=== PATIENT | male | born 1985 | race American Indian/Alaskan Native ===

== ENCOUNTER 2019-02-14 19:04 | Emergency (ER) | payer BC, OTHER ==
--- NOTE | 2019-02-14 19:14 | EDM.PDOC ---
ED HPI GENERAL MEDICAL PROBLEM - General Chief Complaint: Trauma Stated Complaint: KICKED IN CHEST BY A HORSE Time Seen by Provider: 02/14/19 19:14 Source of Information: Reports: Patient History Limitations: Reports: No Limitations - History of Present Illness INITIAL COMMENTS - FREE TEXT/NARRATIVE: 33-year-old male presents to the ED for evaluation of significant anterior blunt chest wall trauma. Patient states he was kicked in the chest via non cladded horse about 19:30 last night. He was trying to D warm the horse. He did not come backwards and he eventually did go down to the ground because it knocked the wind out of him. But he was not pinned up against any fence etc. Horse then stepped on them over his right upper shoulder. He denies any head or neck injury. Pain was quite bad last night a little bit better today. Still hurts badly destroyed take a deep breath and with movement of his arms. It hurts quite badly to cough. Denies feeling shortness of breath. Ate and drank normally today. No odynophagia. He's been taking Motrin for pain. Onset: Sudden Onset Date: 02/13/19 Onset Time: 19:30 Duration: Hour(s): Location: Reports: Chest (Trauma) Quality: Reports: Ache ( wind kicked by a horse last night.), Stabbing Severity: Moderate Improves with: Reports: Rest Worsens with: Reports: Other, Movement (Deep breathing, cough.) Context: Denies: Activity, Exercise, Lifting, Sick Contact, Trauma, Other Associated Symptoms: Reports: Chest Pain. Denies: No Other Symptoms (Central chest pain over the sternum primarily.), Confusion, Cough, cough w sputum, Diaphoresis, Fever/Chills, Headaches, Loss of Appetite, Malaise, Nausea/Vomiting , Rash, Seizure, Shortness of Breath, Syncope Treatments CLINICAL EDUCATION ASSISTANT: Reports: Other (see below) (Motrin when necessary) Middle Chest Pain Score (Numeric/FACES): 7 - Related Data Allergies Allergy/AdvReac Type Severity Reaction Status Date / Time No Known Allergies Allergy Verified 02/14/19 19:18 Home Meds: Home Meds . [No Known Home Meds] 12/24/14 [History] Past Medical History - Past Health History Medical/Surgical History: Denies Medical/Surgical History Social & Family History - Living Situation & Occupation Living situation: Reports: Occupation: Employed Review of Systems - Review of Systems Review Of Systems: See Below Constitutional: Reports: No Symptoms Eyes: Reports: No Symptoms Ears: Reports: No Symptoms Nose: Reports: No Symptoms Mouth/Throat: Reports: No Symptoms Respiratory: Reports: No Symptoms Cardiovascular: Reports: No Symptoms GI/Abdominal: Reports: No Symptoms Genitourinary: Reports: No Symptoms Musculoskeletal: Reports: No Symptoms Skin: Reports: No Symptoms Neurological: Reports: No Symptoms Psychiatric: Reports: No Symptoms ED EXAM, GENERAL - Physical Exam Exam: See Below Exam Limited By: No Limitations General Appearance: Alert, WD/WN, No Apparent Distress, Other (Vital signs show temperature 37.1. Pulse 65 and sinus respiratory 16 pressure is elevated at 197/ 93. Pulse ox 95% on room air.) Eye Exam: Bilateral Eye: Normal Inspection Throat/Mouth: Normal Inspection, Normal Lips, Normal Teeth, Normal Oropharynx Head: Atraumatic, Normocephalic Neck: Normal Inspection, Supple, Non-Tender, Full Range of Motion. No: Lymphadenopathy (L), Lymphadenopathy (R) Respiratory/Chest: No Respiratory Distress, Lungs Clear, Normal Breath Sounds, Other (Patient has a large area of ecchymoses about the size of a hoarse is improved in the center of his chest with superficial abrasions in this area. This is directly over the midsternum and the precordium exactly where his heart would lie. Denies any pain radiating through to his back.) Cardiovascular: Normal Peripheral Pulses, Regular Rate, Rhythm, No Edema, No Gallop, No Murmur ( Patient of the anterior ribs in the midclavicular line as well as posteriorly did not cause any significant discomfort.), No Rub Peripheral Pulses: 3+: Carotid (L), Carotid (R), Posterior Tibial (L), Posterior Tibial (R), Dorsalis Pedis (L), Dorsalis Pedis (R) GI/Abdominal: Normal Bowel Sounds, Soft, Non-Tender, No Organomegaly, No Abnormal Bruit, No Mass, Pelvis Stable Back Exam: Other (Contusion and swelling over the superior aspect of his right scapula with a few superficial abrasions. He has full range of motion of his right upper extremity. The scapula itself appears to be intact.). No: Vertebral Tenderness Extremities: Normal Inspection, Normal Range of Motion, Non-Tender, No Pedal Edema, Normal Capillary Refill Neurological: Alert, Oriented, CN II-XII Intact, Normal Cognition Psychiatric: Normal Affect, Normal Mood Skin Exam: Warm, Dry, Intact, Normal Color, No Rash EKG INTERPRETATION EKG Date: 02/14/19 Time: 19:32 Rhythm: NSR Rate (Beats/Min): 69 [place]: Normal P-Wave: Present QRS: Other (Q waves noted V4 to V6 again less than 25% of the QRS complex one cannot rule out myocardial infarction in the anterior apical wall.) ST-T: Other (Diffuse early repolarization pattern again normal for age. T wave inversion V1 only which is nonspecific. The Q waves appreciated to 3 and aVF are less than 25% of the QRS complex and are considered insignificant.) EKG Interpretation Comments: Abnormal ECG Course - Vital Signs Last Recorded V/S: Last Vital Signs Temp 37.1 C 02/14/19 19:13 Pulse 65 02/14/19 19:13 Resp 16 02/14/19 19:13 BP 197/93 H 02/14/19 19:13 Pulse Ox 95 02/14/19 19:13 - Orders/Labs/Meds Orders: Active Orders 24 hr Category Date Time Status EKG Documentation Completion [RC] STAT Care 02/14/19 19:19 Active Labs: Laboratory Tests 02/14/19 02/14/19 Range/Units 19:25 19:25 WBC 9.71 H (4.23-9.07) K/mm3 RBC 4.78 (4.63-6.08) M/mm3 Hgb 14.9 (13.7-17.5) gm/L Hct 43.3 (40.1-51.0) % MCV 90.6 (79.0-92.2) fl MCH 31.2 (25.7-32.2) pg MCHC 34.4 (32.2-35.5) g/dl RDW Std Deviation 40.5 (35.1-43.9) fL Plt Count 233 (163-337) K/mm3 MPV 8.7 L (9.4-12.3) fl Neutrophils % (Manual) 72 H (40-60) % Band Neutrophils % 1 (0-10) % Lymphocytes % (Manual) 23 (20-40) % Atypical Lymphs % 0 % Monocytes % (Manual) 3 (2-10) % Eosinophils % (Manual) 1 (0.8-7.0) % Basophils % (Manual) 0 L (0.2-1.2) Platelet Estimate Adequate RBC Morph Comment Normal Sodium 139 (136-145) mEq/L Potassium 3.6 (3.5-5.1) mEq/L Chloride 100 (98-107) mEq/L Carbon Dioxide 29 (21-32) mEq/L Anion Gap 13.6 (5-15) BUN 10 (7-18) mg/dL Creatinine 1.0 (0.7-1.3) mg/dL Est Cr Clr Drug Dosing 117.63 mL/min Estimated GFR (MDRD) > 60 (>60) mL/min BUN/Creatinine Ratio 10.0 L (14-18) Glucose 131 H (74-106) mg/dL Calcium 9.0 (8.5-10.1) mg/dL Total Bilirubin 0.8 (0.2-1.0) mg/dL AST 14 L (15-37) U/L ALT 35 (16-63) U/L Alkaline Phosphatase 122 H (46-116) U/L CK-MB (CK-2) 1.1 (0-3.6) ng/ml Troponin I 0.099 H* (0.00-0.056) ng/mL Total Protein 7.6 (6.4-8.2) g/dl Albumin 4.4 (3.4-5.0) g/dl Globulin 3.2 gm/dL Albumin/Globulin Ratio 1.4 (1-2) Meds: Medications Discontinued Medications Generic Name Dose Route Start Last Admin Trade Name Freq PRN Reason Stop Dose Admin Sodium Chloride 1,000 mls @ 150 mls/hr 02/14/19 19:30 02/14/19 19:32 Normal Saline IV 150 mls/hr ASDIRECTED SERA Administration Iohexol 80 ml 02/14/19 19:47 02/14/19 19:55 Omnipaque-300 IVPUSH 02/14/19 19:48 80 ml ONETIME ONE Administration Sodium Chloride 10 ml 02/14/19 19:47 02/14/19 19:55 Saline Flush FLUSH 10 ml ONETIME PRN Administration KEEP VEIN OPEN - Radiology Interpretation Free Text/Narrative:: 33-year-old male presents to the ED after being kicked in the mid chest by a horse last night about 1930 hrs. He was trying to D1 the horse after several attempts the horse suddenly kicked him hitting striking him in the center of his chest over the midsternum and precordium. It knocked him backwards and then he did go down to the ground as it knocked the wind out of him. Horse then stepped on his right upper shoulder. He has significant pain midsternum. Denies any hemoptysis. Pain with deep breathing and coughing and certain movements of his upper extremities. No head neck or abdominal trauma appreciated. Soft tissue contusion to the superior aspect of the right scapula appreciated on exam with some superficial abrasions. Chest wound is that of a large ecchymoses the size of the palm of my hand. There are some superficial abrasions along the midsternum as well. Plan CT chest to be done with IV contrast. Suspect fracture of sternum. - Re-Assessments/Exams Free Text/Narrative Re-Assessment/Exam: 02/14/19 19:42 bedside ultrasound done through the fifth intercostal space as well as to the xiphoid window reveals no signs of a hemopericardium. Cardiac contractility particularly of the right ventricular wall appears normal. Normal septal movement. 02/14/19 20:46 Differential reveals 72% neutrophils 1% band cells. Sodium 139 with potassium of 3.6. Chloride is 100 with a bicarbonate of 29. Anion gap is 13.6. BUN is 10 with a creatinine of 1.0. GFR is greater than 60. Glucose is 131. Calcium is 9.0. Liver function is normal. CK-MB fraction is 1.1. Troponin I is mildly elevated at 0.099. Total protein is 7.[address] of the chest with IV contrast has been completed. Mediastinum and hilar regions appear within normal limits. No axillary adenopathy noted. No pericardial thickening is seen or pericardial effusion. Small portion of the visualized upper abdominal structures are within normal limits although he does have a small hiatal hernia. Little atelectasis is noted within the right lung base. Lungs are otherwise clear. Bone window settings were reviewed which showed nondisplaced fracture within the mid manubrium. Other portions of the sternum appeared to be intact vertebral body heights are maintained. No discrete rib fractures appreciated. Soft tissue swelling is noted within the anterior chest. 02/14/19 21:26 I discussed the case with trauma surgeon Dr. Quiñonez at [facility] in [place] and he agrees that the troponin is of little value in monitoring these patients. Since is been 24 hours since injury and has showed no signs of arrhythmia he will be discharged to home with conservative treatment for manubrial sternal fracture. Departure - Departure Time of Disposition: 21:26 Disposition: Home, Self-Care 01 Condition: Fair Clinical Impression: Chest wall contusion Qualifiers: Encounter type: initial encounter Laterality: unspecified laterality Qualified Code(s): S20.219A - Contusion of unspecified front wall of thorax, initial encounter Fracture, sternum closed Qualifiers: Encounter type: initial encounter Sternal location: manubrium Qualified Code(s) : S22.21XA - Fracture of manubrium, initial encounter for closed fracture - Discharge Information *PRESCRIPTION DRUG MONITORING PROGRAM REVIEWED*: Not Applicable *COPY OF PRESCRIPTION DRUG MONITORING REPORT IN PATIENT CHRIS: Not Applicable Instructions: Sternal Fracture Referrals: PCP,None [Primary Care Provider] - Forms: ED Department Discharge Additional Instructions: Evaluation the emergent today in regards to blunt central chest trauma that occurred about 24 hours ago when your kicked by a horse. Certainly left ear with a large amount of bruising and some abrasions to the central aspect of your chest. CT scan reveals no injuries to the underlying ribs or the lung. It does reveal a fracture of the upper part of your breast bone or sternum called the manubrium. It is well aligned and is considered a stable fracture because the ribs hold it in place. However it is going to be very tender and sore for about 4-6 weeks until it heals completely. Even sleeping on one side will be painful for about 3 weeks. Motrin 600 mg every 6 hours needed for pain relief. The heart turned out to be okay as well. There was minimal elevation of the enzymes which are of no consequence. Activity as tolerated but pushing pulling lifting will cause pain in your chest until the sternum heals. - My Orders Last 24 Hours: My Active Orders 02/14/19 19:19 EKG Documentation Completion [RC] STAT - Assessment/Plan Last 24 Hours: My Active Orders 02/14/19 19:19 EKG Documentation Completion [RC] STAT
[2019-02-14 19:18] VITALS: BP 197/93
[2019-02-14] MEDS ORDERED: Sodium Chloride 0.9% 1,000 ML IV SCH (19:30)
[2019-02-14] MEDS ORDERED: Iohexol 647 MG/ML 100 ML Bottle IVPUSH ONE (19:47)
[2019-02-14] MEDS ORDERED: Sodium Chloride 0.9% 10 ML Syringe FLUSH PRN (19:47)
--- NOTE | 2019-02-14 20:28 | CT ---
CT chest Technique: Multiple axial sections through the chest were obtained. Intravenous contrast was utilized. Findings: Mediastinum and hilar regions appear within normal limits. No axillary adenopathy is seen. No pericardial thickening is seen. Small portion of the visualized upper abdominal structures are within normal limits. Minimal atelectasis is noted within the right lung base. Lungs otherwise are clear. Bone window settings were reviewed which show a nondisplaced fracture within the mid manubrium. Other portions of the sternum appear intact. Vertebral body heights are maintained. No discrete rib fracture is appreciated. Soft tissue swelling is noted within the anterior chest. Impression: 1. Soft tissue swelling within the anterior chest. 2. Nondisplaced fracture within the mid manubrium. 3. Minimal right basilar atelectasis. 4. No additional abnormality is appreciated on CT study of the chest. Diagnostic code #3
== END 2019-02-14 21:45 | disposition home or self-care (01) ==
LOC: JD.ED 19:04
DX: S22.21XA Fracture of manubrium, initial encounter for closed fracture (principal); W55.12XA Struck by horse, initial encounter
CPT/HCPCS: 36415; 71260; 80053; 82553; 84484; 85007; 85027; 93005; 96360; 96361; 99284; J7040; Q9967; 93010